=== PATIENT | male | born 1955 | race Caucasian/White ===

== ENCOUNTER 2018-01-21 13:41 | Emergency (ER) | payer BC, OTHER ==
[2018-01-21] MEDS ORDERED: Acetaminophen TAB* 325 MG PO ONE (15:30)
--- NOTE | 2018-01-21 15:49 | RAD ---
HISTORY: injury, left shoulder injury COMPARISONS: None VIEWS: 4 , Frontal internal rotation, external rotation, outlet, and axillary views of the left shoulder FINDINGS: BONE DENSITY: Normal. BONES: There is no displaced fracture. JOINTS: There is no arthropathy. ALIGNMENT: There is no dislocation. SOFT TISSUES: Vascular calcifications are noted. OTHER FINDINGS: None. IMPRESSION: NO ACUTE OSSEOUS INJURY. IF SYMPTOMS PERSIST, RECOMMEND REPEAT IMAGING.
[2018-01-21 16:28] VITALS: BP 155/75
--- NOTE | 2018-01-21 16:50 | ED ---
Upper Extremity Pain - HPI Summary HPI Summary: Patient is a 62-year-old male who presents emergency department for left shoulder injury that occurred today at work. Patient states he was swinging a heavy hammer when he felt a pop in his left shoulder. Patient states he has had rotator cuff tear in his right shoulder and symptoms for similar today. Denies numbness, tingling or weakness in arms. Pain is worse with movement. Nothing makes symptoms better. Denies significant past medical history. - History of Current Complaint Chief Complaint: EDExtremityUpper Stated Complaint: LT ARM INJURY Time Seen by Provider: 01/21/18 14:06 Hx Obtained From: Patient - Allergies/Home Medications Allergies/Adverse Reactions: Allergies Allergy/AdvReac Type Severity Reaction Status Date / Time No Known Allergies Allergy Verified 01/21/18 14:03 Home Medications: Home Medications Aspirin 325 mg PO DAILY 01/21/18 [History Confirmed 01/21/18] PMH/Surg Hx/FS Hx/Imm Hx Previously Healthy: Yes Infectious Disease History: No Infectious Disease History: Denies: Traveled Outside the [place] in Last 30 Days - Family History Known Family History: Positive: Other - Noncontributory - Social History Occupation: Employed Full-time Lives: With Family Alcohol Use: None Substance Use Type: Reports: None Smoking Status (MU): Never Smoked Tobacco Review of Systems Positive: Other - Left shoulder pain Neurological: Negative Negative: Weakness, Paresthesia, Numbness All Other Systems Reviewed And Are Negative: Yes Physical Exam Triage Information Reviewed: Yes Vital Signs On Initial Exam: Initial Vitals Temp Pulse Resp BP Pulse Ox 97.5 F 91 20 161/101 97 01/21/18 14:01 01/21/18 14:01 01/21/18 14:01 01/21/18 14:01 01/21/18 14:01 Vital Signs Reviewed: Yes Appearance: Positive: Well-Appearing - Pt. sitting on chair in NAD. Skin: Positive: Warm, Dry Head/Face: Positive: Normal Head/Face Inspection Eyes: Positive: Normal, EOMI Neck: Positive: Supple, Nontender Musculoskeletal: Positive: Other - Good radial pulse on left. 5/5 strength in hand. No palpable shoulder pain on left. Poor ROM secondary to pain. Unable to abduct left arm secondary to pain. Neurological: Positive: Normal, CN Intact II-III Psychiatric: Positive: Affect/Mood Appropriate Diagnostics - Vital Signs Vital Signs Temp Pulse Resp BP Pulse Ox 01/21/18 16:25 97.3 F 78 16 155/75 98 01/21/18 14:01 97.5 F 91 20 161/101 97 - Laboratory Lab Statement: Any lab studies that have been ordered have been reviewed, and results considered in the medical decision making process. Course/Dx - Course Course Of Treatment: Pt. presenting for isolated left shoulder injury. X-rays negative for acute findings, reading per radiology. Suspect rotator cuff injury based on mechanism and exam. Advised patient to call the orthopedic office today for close follow-up appointment for further evaluation. To ice and rest shoulder. Gentle range of motion. Anti-inflammatories for pain. Patient understands and agrees with plan. - Diagnoses Differential Diagnosis/HQI/PQRI: Positive: Bursitis, Fracture (Closed), Strain, Sprain Provider Diagnoses: Shoulder injury, Rotator cuff injury Discharge - Sign-Out/Discharge Documenting (check all that apply): Patient Departure - Discharge Plan Condition: Good Disposition: HOME Patient Education Materials: Rotator Cuff Injury (ED), Shoulder Pain (ED) Referrals: Yoav Lopez MD [Medical Doctor] - Additional Instructions: Call the orthopedic clinic today to schedule a close follow up appointment for further evaluation Ice intermittently Gentle range of motion exercises NSAIDS for pain as directed such as ibuprofen Return to ER if symptoms change or worsen - Billing Disposition and Condition Condition: GOOD Disposition: Home
== END 2018-01-21 16:25 | disposition home or self-care (01) ==
LOC: ED 13:41
DX: S49.92XA Unspecified injury of left shoulder and upper arm, initial encounter (principal); S46.002A Unspecified injury of muscle(s) and tendon(s) of the rotator cuff of left shoulder, initial encounter; X50.9XXA Other and unspecified overexertion or strenuous movements or postures, initial encounter; Y93.89 Activity, other specified; Y92.9 Unspecified place or not applicable; Y99.0 Civilian activity done for income or pay
CPT/HCPCS: 99282; A9270-GY